=== PATIENT | female | born 1965 | race Caucasian/White ===

== ENCOUNTER 2022-03-01 11:18 | Emergency (ER) | payer OTHER ==
[~2022-03-01] VITALS: Ht 160 cm; Wt 85.3 kg
[2022-03-01 11:22] VITALS: BP 157/93
--- NOTE | 2022-03-01 11:27 | NUR ---
PT W/C ASSISTED TO BED 9
[2022-03-01] MEDS ORDERED: HYDROcodone/APAP 5/325 MG 1 TAB TAB PO ONE (11:45)
--- NOTE | 2022-03-01 14:04 | NUR ---
SLING APPLIED TO L ARM
[2022-03-01] MEDS ORDERED: ACET-8905 PO (14:33)
[2022-03-01] MEDS ORDERED: IBUP-2213 PO (14:33)
--- NOTE | 2022-03-01 14:38 | NUR ---
LONG ARM POSTERIOR APPLIED TO L ARM. + CMS. SORAYA WRAP X 2
[2022-03-01 14:41] VITALS: BP 148/90
== END 2022-03-01 14:41 | disposition home or self-care (01) ==
LOC: MED 11:18
DX: S52.122A Displaced fracture of head of left radius, initial encounter for closed fracture (principal); S70.02XA Contusion of left hip, initial encounter; M79.662 Pain in left lower leg; W18.30XA Fall on same level, unspecified, initial encounter; Y93.89 Activity, other specified; Y92.89 Other specified places as the place of occurrence of the external cause; Y99.8 Other external cause status
CPT/HCPCS: 29105; 73060; 73080; 73502; 99284